=== PATIENT | male | born 1990 | race African-American/Black ===

== ENCOUNTER 2017-10-21 23:17 | Emergency (ER) | payer SELFPAY ==
[~2017-10-21] VITALS: Ht 170.2 cm; Wt 84.9 kg
[2017-10-22] MEDS ORDERED: IBU600 MG PO (00:35)
[2017-10-22] MEDS ORDERED: CLEOCIN300 MG PO (00:35)
[2017-10-22 01:07] VITALS: BP 132/62
== END 2017-10-22 01:07 | disposition home or self-care (01) ==
LOC: EME 23:17
DX: R07.9 Chest pain, unspecified (principal); M54.81 Occipital neuralgia; K08.89 Other specified disorders of teeth and supporting structures; F17.200 Nicotine dependence, unspecified, uncomplicated
CPT/HCPCS: 93005; 99281; 99284